=== PATIENT | female | born 1995 | race Caucasian/White ===

== ENCOUNTER 2018-04-27 20:45 | Emergency (ER) | payer OTHER ==
[2018-04-27 21:50] LABS: Absolute Lymphocytes (CBC) 2.6 K/uL (0.7-4.9); Absolute Monocytes 0.6 K/uL (0.1-1.3); Absolute Neutrophil 7.4 K/uL (1.8-8.0); Basophils % 0.3 % (0-1.3); Eosinophils % 1.1 % (0-4.4); Hematocrit 40.4 % (36.0-45.0); Lymphocytes % 23.9 % (15.3-44.8); MCH 31.2 pg (27.0-35.0); MCV 91.1 fL (80-100); MPV 8.7 fL (7.6-11.3); RBC Red Blood Cell Count 4.44 M/uL (3.86-4.86)
--- NOTE | 2018-04-27 22:04 | RAD REPORT ---
EXAM DESCRIPTION: US - Transvaginal Study Probe - 04/27/2018 9:53 pm CLINICAL HISTORY: Vaginal bleeding COMPARISON: none FINDINGS: The uterus is retroverted measuring 8 x 5 x 6cm. A pole is present within a gestatio nal sac. pole measures 5.1 millimeters. Cardiac activity not seen. Gestational sac measures 1.9 x 1.9 x 1.3 centimeters. A 1.5 x 0.6 x 0.7 centimeters subchorionic bleed is present The ovaries are normal in size and echotexture. No significant free fluid is seen. IMPRESSION: Intrauterine with an estimated gestational age 6 weeks 3 days YUE 12/18/2018 Cardiac activity not seen. This may represent a viable in which heart beat is not visualize d secondary to the early gestation. demise is another consideration. Serial beta HCG levels rec ommended. Follow up endovaginal sonogram in 1 week would be helpful Small subchorionic bleed
[2018-04-27 22:14] LABS: BUN Blood Urea Nitrogen 9 mg/dL (7-18); Bicarbonate 25 mmol/L (21-32); Glucose Level 105 mg/dL (74-106); Potassium 3.9 mmol/L (3.5-5.1); Sodium Level 141 mmol/L (136-145)
[2018-04-27 22:29] LABS: HCG, Quantitative 22198 mIU/mL (1-3)
--- NOTE | 2018-04-27 23:14 | EDPHYS ---
Physician Documentation [facility] Name: Vane Miller Age: 22 yrs Sex: Female : 1995 Arrival Date: 04/27/2018 Time: 20:51 Bed 6 Private MD: ED Physician Catarino Aponte HPI: 04/27 21:17 This 22 yrs old Female presents to ER via Ambulatory with complaints of cp Vaginal Bleeding. 21:17 The patient presents with vaginal bleeding that is light. Onset: The symptoms/episode cp began/occurred 1 hour(s) ago, and improved. 21:17 Associated signs and symptoms: Pertinent negatives: constipation, cramping, diarrhea, cp fever, hematuria. 21:17 Severity of symptoms: in the emergency department the symptoms have improved. The cp patient's method of control includes nothing. 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 - Social history:: Smoking status: Patient/guardian denies using tobacco. - Ebola Screening: : No symptoms or risks identified at this time. ROS: 21:18 Eyes: Negative for injury, pain, redness, and discharge. cp 21:18 Constitutional: Negative for body aches, chills, fever, poor PO intake. 21:18 Cardiovascular: Negative for chest pain, palpitations. 21:18 Respiratory: Negative for cough, shortness of breath, wheezing. 21:18 Abdomen/GI: Negative for abdominal pain, nausea, vomiting, and diarrhea. 21:18 : Positive for vaginal bleeding, Negative for urinary symptoms, pelvic pain. 21:18 Neuro: Negative for dizziness, headache, syncope, near syncope, weakness. 21:18 All other systems are negative. Exam: 21:22 Head/Face: Normocephalic, atraumatic. cp 21:22 Constitutional: The patient appears in no acute distress, alert, awake, non-toxic, well developed, well nourished. 21:22 Eyes: Periorbital structures: appear normal, Conjunctiva: normal, no exudate, no injection, Sclera: no appreciated abnormality, Lids and lashes: appear normal, bilaterally. 21:22 ENT: External ear(s): are unremarkable, Nose: is normal, Mouth: Lips: moist, Oral mucosa: moist, Posterior pharynx: is normal, airway is patent, no erythema, no exudate, Voice: is normal. 21:22 Chest/axilla: Inspection: normal, Palpation: is normal, no crepitus, no tenderness. 21:22 Cardiovascular: Rate: normal, Rhythm: regular. 21:22 Respiratory: the patient does not display signs of respiratory distress, Respirations: normal, no use of accessory muscles, no retractions, no splinting, no tachypnea, labored breathing, is not present, Breath sounds: are clear throughout, no decreased breath sounds, no stridor, no wheezing. 21:22 Abdomen/GI: Inspection: abdomen appears normal, Bowel sounds: active, all quadrants, Palpation: abdomen is soft and non-tender, in all quadrants, involuntary guarding, is not appreciated. 21:22 Back: pain, is absent, ROM is normal. 21:22 Skin: cellulitis, is not appreciated, no rash present. Vital Signs: 21:15 BP 129 / 81; Pulse 80; Resp 16; Temp 98.3; Pulse Ox 100% on R/A; Weight 68.04 kg; tl2 Height 5 ft. 5 in. (165.10 cm); Pain 0/10; 23:08 BP 133 / 83; Pulse 92; Resp 18; Pulse Ox 99% on R/A; tl2 21:15 Body Mass Index 24.96 (68.04 kg, 165.10 cm) tl2 MDM: 21:00 Patient medically screened. cp 22:00 Differential diagnosis: ectopic , threatened Ab, inevitable Ab, ovarian cyst, cp urinary tract infection, vaginosis. 23:10 Data reviewed: vital signs, nurses notes, lab test result(s), radiologic studies, cp ultrasound. 23:10 Counseling: I had a detailed discussion with the patient and/or guardian regarding: the cp historical points, exam findings, and any diagnostic results supporting the discharge/admit diagnosis, lab results, radiology results, the need for outpatient follow up, an OB/Gyne specialist, to return to the emergency department if symptoms worsen or persist or if there are any questions or concerns that arise at home. Special discussion: pelvic rest and repeat beta-hcg in 48 hours. 04/27 21:17 Order name: Quantitative Hcg; Complete Time: 23:04 04/27 23:04 Interpretation: Abnormal: HCGQ 45194. 04/27 21:17 Order name: Abo/rh Typing; Complete Time: 23:04 04/27 21:17 Order name: Basic Metabolic Panel; Complete Time: 23:04 04/27 23:05 Interpretation: Normal except: CL 109. 04/27 21:17 Order name: CBC with Diff; Complete Time: 22:05 04/27 21:19 Order name: Urine Dipstick--Ancillary (enter results) ny 04/27 21:19 Order name: Urine --Ancillary (enter results) ny 04/27 21:17 Order name: Urine Test (obtain specimen); Complete Time: 21:22 04/27 21:17 Order name: IV Saline Lock; Complete Time: 21:38 04/27 21:17 Order name: Labs collected and sent; Complete Time: 21:38 04/27 21:17 Order name: NPO; Complete Time: 21:22 04/27 21:17 Order name: Urine Dipstick-Ancillary (obtain specimen); Complete Time: 21:22 04/27 22:01 Order name: Transvaginal OB; Complete Time: 22:05 EDMS Administered Medications: No medications were administered Disposition: 04/27/18 23:13 Discharged to Home. Impression: Threatened . - Condition is Stable. - Discharge Instructions: Threatened Miscarriage, Pelvic Rest. - Prescriptions for Vitamin 27- 0.8 mg Oral Tablet - take 1 tablet by ORAL route once daily; 60 tablet. - Medication Reconciliation Form, Thank You Letter, Antibiotic Education, Prescription Opioid Use form. - Follow up: Private Physician; When: 48 Hours; Reason: Repeat Beta-HCG (48 Hours). - Problem is new. - Symptoms have improved. Addendum: 04/29/2018 09:41 Co-signature as Attending Physician, Catarino Aponte MD I agree with the assessment and c durand plan of care. Signatures: Dispatcher [employer] Catarino Rao MD MD cha Page, Corey, PA PA cp Anrdessa Leon, RN RN tl2 Corrections: (The following items were deleted from the chart) 04/27 22:02 21:17 Transvaginal Study (Probe)+[email or web address] ordered. EDMS EDMS 23:35 23:13 04/27/2018 23:13 Discharged to Home. Impression: Threatened . Condition tl2 is Stable. Forms are Medication Reconciliation Form, Thank You Letter, Antibiotic Education, Prescription Opioid Use. Follow up: Private Physician; When: 48 Hours; Reason: Repeat Beta-HCG (48 Hours). Problem is new. Symptoms have improved. cp
--- NOTE | 2018-04-27 23:14 | ER ---
Nurse's Notes [facility] Name: Vane Miller Age: 22 yrs Sex: Female : 1995 Arrival Date: 04/27/2018 Time: 20:51 Bed 6 Private MD: Diagnosis: Threatened Presentation: 04/27 21:14 Presenting complaint: Patient states: Pt reports pelvic pressure and vaginal bleeding tl2 started about an hour ago. Denies cramping. Transition of care: patient was not received from another setting of care. Onset of symptoms was April 27, 2018 at 20:00. Risk Assessment: Do you want to hurt yourself or someone else? Patient reports no desire to harm self or others. Initial Sepsis Screen: Does the patient meet any 2 criteria? No. Patient's initial sepsis screen is negative. Does the patient have a suspected source of infection? No. Patient's initial sepsis screen is negative. Care prior to arrival: None. 21:14 Method Of Arrival: Ambulatory tl2 21:14 Acuity: STEFANIE 3 tl2 Triage Assessment: 21:15 General: Appears in no apparent distress. uncomfortable, Behavior is calm, cooperative, tl2 appropriate for age. Pain: Complains of pain in pelvis. Neuro: Level of Consciousness is awake, alert, obeys commands, Oriented to person, place, time, situation. Respiratory: Airway is patent Respiratory effort is even, unlabored, Respiratory pattern is regular, symmetrical. GI: No signs and/or symptoms were reported involving the gastrointestinal system. : Reports vaginal bleeding that is light flow, Denies cramping. 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 - Social history:: Smoking status: Patient/guardian denies using tobacco. - Ebola Screening: : No symptoms or risks identified at this time. Screenin:21 Abuse screen: Denies threats or abuse. Nutritional screening: No deficits noted. tl2 Tuberculosis screening: No symptoms or risk factors identified. Fall Risk None identified. Assessment: 21:38 General: see triage assessment. tl2 22:54 Reassessment: Patient appears in no apparent distress at this time. No changes from tl2 previously documented assessment. Patient and/or family updated on plan of care and expected duration. Pain level reassessed. Patient is alert, oriented x 3, equal unlabored respirations, skin warm/dry/pink. 23:33 Reassessment: Patient appears in no apparent distress at this time. Patient and/or tl2 family updated on plan of care and expected duration. Pain level reassessed. Patient is alert, oriented x 3, equal unlabored respirations, skin warm/dry/pink. Pt verbalized understanding of discharge instructions, need for follow up with OB to get 48 hour HCG result. Vital Signs: 21:15 BP 129 / 81; Pulse 80; Resp 16; Temp 98.3; Pulse Ox 100% on R/A; Weight 68.04 kg; tl2 Height 5 ft. 5 in. (165.10 cm); Pain 0/10; 23:08 BP 133 / 83; Pulse 92; Resp 18; Pulse Ox 99% on R/A; tl2 21:15 Body Mass Index 24.96 (68.04 kg, 165.10 cm) tl2 ED Course: 20:51 Patient arrived in ED. ag3 21:00 Catarino Trotter PA is PHCP. cp 21:00 Catarino Aponte MD is Attending Physician. cp 21:14 Andressa Leon, CHRIS is Primary Nurse. tl2 21:15 Triage completed. tl2 21:15 Arm band placed on right wrist. tl2 21:21 Patient has correct armband on for positive identification. Bed in low position. Call tl2 light in reach. Side rails up X 1. 21:38 Inserted saline lock: 20 gauge in left antecubital area, using aseptic technique. Blood tl2 collected. placed by adan Ignacio. 21:57 Ultrasound completed. Patient tolerated well. Notified HEALTH RECORD TECHNICIAN/CASSIDY benjamin page. sg3 22:02 Transvaginal OB In Process Unspecified. EDMS 23:33 No provider procedures requiring assistance completed. IV discontinued, intact, tl2 bleeding controlled, No redness/swelling at site. Pressure dressing applied. Administered Medications: No medications were administered Outcome: 23:13 Discharge ordered by . cp 23:33 Discharged to home ambulatory, with family. tl2 23:33 Condition: stable 23:33 Discharge instructions given to patient, Instructed on discharge instructions, follow up and referral plans. Demonstrated understanding of instructions, follow-up care, Prescriptions given X 1. 23:35 Patient left the ED. tl2 Signatures: Dispatcher [employer] EDMS Catarino Trottre PA PA cp Knox, Taylor, RN RN tl2 Ysabel Reynoso sg3 Noa Storm ag3 Corrections: (The following items were deleted from the chart) 22:02 21:53 In radiology for Transvaginal Study (Probe)+[email or web address]. EDMS EDMS
[2018-04-28 01:42] LABS: Urine Blood TRACE (NEG); Urine Glucose NEGATIVE (NEG); Urine Protein NEGATIVE (NEG)
== END 2018-04-27 23:35 | disposition home or self-care (01) ==
LOC: ER 20:45
DX: O20.0 Threatened abortion (principal); Z3A.01 Less than 8 weeks gestation of pregnancy
CPT/HCPCS: 36415; 76817; 80048; 81003; 81025; 84702; 85025; 86900; 86901; 99284